=== PATIENT | male | born 1965 | race Caucasian/White ===

== ENCOUNTER → 2020-07-10 14:40 | Outpatient (BNVA) | payer BC, SELFPAY | PROVIDERS: Visit Provider Internal Medicine Cardiovascular Disease | DX: E78.2 Mixed hyperlipidemia (principal); Z12.5 Encounter for screening for malignant neoplasm of prostate | CPT/HCPCS: 80061; 86141; G0103 ==

== ENCOUNTER → 2022-08-04 16:32 | Outpatient (BNVA) | payer BC, SELFPAY | PROVIDERS: Visit Provider Internal Medicine | DX: R07.89 Other chest pain (principal); E11.69 Type 2 diabetes mellitus with other specified complication; E78.5 Hyperlipidemia, unspecified; Z12.5 Encounter for screening for malignant neoplasm of prostate; R06.02 Shortness of breath | CPT/HCPCS: 36415; 80053; 80061; 85025; G0103 ==

== ENCOUNTER 2022-09-10 07:29 | Outpatient (CLI) | payer BC, SELFPAY ==
--- NOTE | 2022-09-10 07:45 | USCV_ITS ---
Neri Louis Age: 56 Gender: M : 1965 Exam Date: 09/10/2022 07:43 Ordering Phys: Dino Massey M.D ([email or web address]) Technologist: GABRIELA Exam Location: [facility] [place] Indication: sob BP: 145 / 95 HR: 72 Rhythm: Sinus Technical Quality: Adequate MEASUREMENTS (Male / Female) Normal Values 2D ECHO LV Diastolic Diameter PLAX 4.9 cm 4.2 - 5.9 / 3.9 - 5.3 cm LV Systolic Diameter PLAX 2.4 cm LV Chamber Size 3.6 cm IVS Diastolic Thickness 0.9 cm 0.6 - 1.0 / 0.6 - 0.9 cm IVS Systolic Thickness 1.8 cm LVPW Diastolic Thickness 1.5 cm 0.6 - 1.0 / 0.6 - 0.9 cm LVPW Systolic Thickness 2.4 cm RV Chamber Size 2.3 cm LVOT Diameter 2.0 cm LV Ejection Fraction 2D Teich 81.9 % LV Ejection Fraction MOD 2C 53.0 % LV Ejection Fraction 2C AL 52.8 % LA Diameter 3.5 cm LA Width 2.9 cm LA Height 3.2 cm RA Width 2.8 cm RA Height 2.9 cm Aorta at Sinotubular Diameter 3.5 cm IVC Diameter 2.0 cm M-MODE LV Diastolic Diameter MM 4.5 cm 4.2 - 5.9 / 3.9 - 5.3 cm LV Systolic Diameter MM 1.9 cm LV Ejection Fraction MM Teich 87.4 % IVS Diastolic Thickness MM 1.1 cm 0.6 - 1.0 / 0.6 - 0.9 cm IVS Systolic Thickness MM 1.6 cm LVPW Diastolic Thickness MM 1.2 cm 0.6 - 1.0 / 0.6 - 0.9 cm LVPW Systolic Thickness MM 1.5 cm Aortic Annulus Diameter 3.6 cm LA Ao Ratio MM 1.0 MV E Point Septal Separation 0.7 cm DOPPLER AV Peak Velocity 123.3 cm/s LVOT Peak Velocity 89.0 cm/s AV Area Cont Eq vti 2.4 cm squared AV Area Cont Eq pk 2.3 cm squared MV Area PHT 4.5 cm squared Mitral E to A Ratio 1.3 MV E' Velocity 38.0 cm/s Mitral E to MV E' Ratio 5.9 Mitral E to LV E' Lateral Ratio 5.0 Mitral E to LV E' Septal Ratio 7.1 TR Peak Velocity 181.9 cm/s TR Peak Gradient 13.2 mmHg TR Mean Velocity 181.4 cm/s TR Mean Gradient 13.3 mmHg TR Velocity Time Integral 51.4 cm TV Peak E Velocity 75.0 cm/s Right Atrial Pressure 3.0 mmHg Pulmonary Artery Systolic Pressu 16.2 mmHg PV Peak Velocity 56.0 cm/s RV Acceleration Time 0.1 s RV Ejection Time 0.3 s RV AcT/ET 0.4 FINDINGS Left Ventricle Left ventricle is normal in size. LV systolic function is normal with EF 55 to 60%. No regional wall motion abnormalities are seen. Diastolic function is normal. Right Ventricle Normal in size and function Right Atrium Normal in size Left Atrium Normal in size Mitral Valve Structurally normal mitral valve. No significant stenosis or regurgitation. Aortic Valve Structurally normal aortic valve. No significant stenosis or regurgitation is seen. Tricuspid Valve Mild tricuspid regurgitation. Pulmonary artery systolic pressure is normal. Pulmonic Valve Not well-visualized Pericardium Normal Aorta Normal in size IVC Appears to be normal CONCLUSIONS LV systolic function is normal with EF 55 to 60%. Diastolic function is normal. No significant valvular heart disease. Mild tricuspid regurgitation No comparison studies are Dino Massey MD (Electronically Signed) Final Date: 24 September 2022 20:23 S
== END 2022-09-10 07:30 | disposition home or self-care (01) ==
LOC: RAD 07:32
PROVIDERS: Visit Provider Internal Medicine
DX: R06.02 Shortness of breath (principal); I07.1 Rheumatic tricuspid insufficiency
CPT/HCPCS: 93306

== ENCOUNTER 2023-12-01 07:46 | Outpatient (CLI) | payer BC, SELFPAY ==
--- NOTE | 2023-12-01 07:45 | USCV_ITS ---
Neri Louis Age: 58 Gender: M : 1965 Exam Date: 12/01/2023 07:54 Ordering Phys: Jayna Jovel Technologist: KARINA [place] [facility] [place]: chest pain BP: 130 / 80 HR: 100 Rhythm: Sinus Technical Quality: Adequate MEASUREMENTS (Male / Female) Normal Values 2D ECHO LV Diastolic Diameter PLAX 5.1 cm 4.2 - 5.9 / 3.9 - 5.3 cm IVS Diastolic Thickness 0.9 cm 0.6 - 1.0 / 0.6 - 0.9 cm IVS Systolic Thickness 1.6 cm LVPW Diastolic Thickness 1.0 cm 0.6 - 1.0 / 0.6 - 0.9 cm LVPW Systolic Thickness 1.6 cm LVOT Diameter 2.0 cm LV Ejection Fraction 2D Teich 64.9 % LV Ejection Fraction MOD 2C 73.9 % LV Ejection Fraction 2C AL 73.9 % LA Diameter 2.8 cm RA Systolic Volume 4C AL 38.0 ml RA Systolic Volume 4C MOD 36.0 ml Aorta at Sinotubular Diameter 2.5 cm IVC Diameter 2.0 cm M-MODE LA Ao Ratio MM 1.0 AV Cusp Separation MM 3.0 cm DOPPLER AV Peak Velocity 94.0 cm/s LVOT Peak Velocity 82.0 cm/s AV Area Cont Eq vti 3.4 cm squared AV Area Cont Eq pk 2.8 cm squared MV Peak Velocity 67.0 cm/s MV Area PHT 4.7 cm squared Mitral E to A Ratio 1.2 TV Peak Velocity 161.7 cm/s TR Peak Velocity 309.0 cm/s TR Peak Gradient 38.2 mmHg TV Peak E Velocity 80.0 cm/s Right Atrial Pressure 3.0 mmHg Pulmonary Artery Systolic Pressu 41.2 mmHg PV Peak Velocity 120.0 cm/s FINDINGS Left Ventricle Left ventricle is normal size. LV systolic function is normal with EF of 60 to 65%. No regional wall motion abnormalities are seen. Right Ventricle Normal in size and fucntion Right Atrium Normal in size. Left Atrium Normal in size. Mitral Valve Structurally normal mitral valve. Trace mitral regurgitation. Aortic Valve Structurally normal aortic valve. No significant stenosis or regurgitation Tricuspid Valve Mild tricuspid regurgitation. Insufficient TR jet to calculate RVSP Pulmonic Valve Not well visualized Pericardium Normal Aorta Normal in size IVC Appears to be normal CONCLUSIONS LV systolic function is normal with EF of 60-65% Trace mitral regurgitation Mild tricuspid regurgitation Compared to prior echocardiogram from 2022, no significant changes seen Dino Massey MD (Electronically Signed) Final Date: 11 Dec 2023 12:01 S
--- NOTE | 2023-12-01 09:30 | CT_ITS ---
WS: [id number] CT CALCIUM SCORE REASON FOR VISIT: hyperlipidemia, not on statin or repatha; Coronary artery disease risk assessment COMPARISON: None TECHNIQUE: Noncontrast coronary CT in combination with quantitative analysis performed on a separate workstation were used to determine CACS (Agatston score) TOTAL EXAM DOSE: 51.73 mGy.cm ECG GATING: Prospective SCAN RANGE: Pulmonary artery bifurcation to Inferior aspect of heart COMPLICATIONS: None FINDINGS: Technical Quality/Examination Quality: Fair Limitation: Increased heart rate Heart rate in the upper 80s. OVERALL SCORES Total calcium score: 9 Total volume score: 15 mm3 Percentile: 25th to 50th percentile % ARTERY SCORES Left anterior descending artery: 5 Left circumflex artery: 2 Right coronary artery: 2 OTHER FINDINGS: Mediastinum: Normal. Thoracic aorta: Normal. Lungs: A few calcified granulomas. Upper Abdomen: Normal. MINIMAL: 1-10 MILD: 11-100 MODERATE: 101-400 SEVERE:>400 CT/CT heart w calcium score 71432 IMPRESSION: 1. Exam is somewhat limited due to increased heart rate in the upper 80s 2. Minimal coronary artery disease with a TOTAL CALCIUM SCORE OF 9 3. Total calcium score of 9 is between 25th the 50th percentile for males betw een the ages of 55 and 59. GRADING OF CORONARY ARTERY DISEASE (BASED ON TOTAL CALCIUM SCORE) NO EVIDENCE OF CAD: 0 calcium score
== END 2023-12-01 07:47 | disposition home or self-care (01) ==
LOC: RAD 07:47
PROVIDERS: Visit Provider Nurse Practitioner Family
DX: E11.69 Type 2 diabetes mellitus with other specified complication (principal); I10 Essential (primary) hypertension; E78.5 Hyperlipidemia, unspecified; I25.10 Atherosclerotic heart disease of native coronary artery without angina pectoris; I07.1 Rheumatic tricuspid insufficiency
CPT/HCPCS: 75571; 93306

== ENCOUNTER → 2023-12-06 09:08 | Outpatient (BNVA) | payer BC, SELFPAY | PROVIDERS: Visit Provider Psychiatry & Neurology Neurology | DX: I10 Essential (primary) hypertension (principal); E11.69 Type 2 diabetes mellitus with other specified complication; E78.5 Hyperlipidemia, unspecified; G25.3 Myoclonus; E55.9 Vitamin D deficiency, unspecified; R55 Syncope and collapse; R25.1 Tremor, unspecified; R25.3 Fasciculation; Z09 Encounter for follow-up examination after completed treatment for conditions other than malignant neoplasm | CPT/HCPCS: 36415; 82306; 82550; 84432; 86160; 86162; 86235; 86255; 86376; 86592; 86617; 86780; 86800 ==

== ENCOUNTER 2023-12-28 13:42 | Outpatient (CLI) | payer BC, SELFPAY ==
[2023-12-28 14:42] LABS: Thyroid Stimulating Hormone 0.85 uIU/mL (0.27-4.20)
[2023-12-29 09:10] LABS: T3 Total 133 ng/dL (76-181)
[2023-12-30 09:24] LABS: Thyroglobulin AB <1 IU/mL (< or = 1); Thyroid Peroxidase Antobodies 1 IU/mL (<9)
== END 2023-12-28 13:43 | disposition home or self-care (01) ==
LOC: LAB 13:44
PROVIDERS: Visit Provider Internal Medicine
DX: E05.90 Thyrotoxicosis, unspecified without thyrotoxic crisis or storm (principal)
CPT/HCPCS: 36415; 84439; 84443; 84480; 86376; 86800

== ENCOUNTER → 2024-12-31 09:21 | Outpatient (BNVA) | payer BC, SELFPAY | PROVIDERS: PCP Family Medicine; Visit Provider Family Medicine | DX: I10 Essential (primary) hypertension (principal); G25.3 Myoclonus; F41.9 Anxiety disorder, unspecified | CPT/HCPCS: 80053; 80061; 82252; 85025; 85651; 86038; 86140; 86200; 86235; 86431 ==

== ENCOUNTER 2025-07-03 08:22 | Outpatient (CLI) | payer BC, SELFPAY ==
--- NOTE | 2025-07-03 08:30 | USCV_ITS ---
Heriberto Neri Age: 59 Gender: M : 1965 Exam Date: 07/03/2025 08:40 Ordering Phys: Dino Massey M.D ([email or web address]) Technologist: Exam Location: [facility] – [place] Indication: high risk meds BP: 140 / 85 HR: 71 Rhythm: Sinus Technical Quality: Adequate MEASUREMENTS (Male / Female) Normal Values 2D ECHO LV Diastolic Diameter PLAX 4.0 cm 4.2 - 5.9 / 3.9 - 5.3 cm IVS Diastolic Thickness 1.6 cm 0.6 - 1.0 / 0.6 - 0.9 cm IVS Systolic Thickness 1.9 cm LVPW Diastolic Thickness 1.7 cm 0.6 - 1.0 / 0.6 - 0.9 cm LVPW Systolic Thickness 1.6 cm LVOT Diameter 2.3 cm LV Ejection Fraction 2D Teich 67.4 % LV Ejection Fraction MOD 4C 60.5 % LV Ejection Fraction MOD 2C 69.7 % LV Ejection Fraction 2C AL 70.2 % LA Diameter 3.6 cm RA Systolic Volume 4C AL 32.7 ml RA Systolic Volume 4C MOD 32.3 ml Aorta at Sinotubular Diameter 3.0 cm IVC Diameter 1.9 cm M-MODE LA Ao Ratio MM 1.2 AV Cusp Separation MM 2.3 cm DOPPLER AV Peak Velocity 122.0 cm/s LVOT Peak Velocity 101.0 cm/s AV Area Cont Eq vti 4.1 cm squared AV Area Cont Eq pk 3.3 cm squared MV Peak Velocity 84.0 cm/s MV Area PHT 3.9 cm squared Mitral E to A Ratio 34.6 TR Peak Velocity 243.0 cm/s TR Peak Gradient 23.6 mmHg TV Peak E Velocity 74.0 cm/s PV Peak Velocity 133.0 cm/s FINDINGS Left Ventricle Normal left ventricular size and systolic function, EF of 60- 65%. No regional wall motion abnormalities. Right Ventricle Normal in size and function Right Atrium Normal in size Left Atrium Normal in size IA Septum Grossly normal Mitral Valve Structurally normal mitral valve. Mild mitral regurgitation Aortic Valve Structurally normal aortic valve. No aortic valve stenosis. Tricuspid Valve Insufficient TR jet to calculate RVSP Pulmonic Valve Not well visualized Pericardium Normal Aorta Normal in size IVC Appears to be normal CONCLUSIONS LV systolic function is normal with EF of 60-65% Mild mitral regurgitation Dino Massey MD (Electronically Signed) Final Date: 13 July 2025 14:33 S
== END 2025-07-03 08:23 | disposition home or self-care (01) ==
LOC: RAD 08:24
PROVIDERS: PCP Family Medicine; Visit Provider Internal Medicine
DX: R07.9 Chest pain, unspecified (principal); R06.02 Shortness of breath; I34.0 Nonrheumatic mitral (valve) insufficiency
CPT/HCPCS: 93306